=== PATIENT | male | born 1980 | race Caucasian/White ===

== ENCOUNTER 2017-11-30 10:45 | Inpatient (IN) | payer OTHER ==
[~2017-11-30] VITALS: Ht 160 cm; Wt 78.9 kg
--- NOTE | ~2017-11-30 | PROC ---
[facility] [address] [place] [address] PROCEDURE REPORT Name: ATIF MERRITT Room: [address]#: [id number] Admission: 11/30/17 Attend Phys: Patrick Knapp, Discharge: 12/05/17 Date of : 78 Report #: [id number] THIS REPORT FOR: //name// For GI report, please see the Provation report in Per[employer] content. By: [id number] Records Staff NATIVIDAD /JANAE
[2017-11-30 11:15] VITALS: BP 127/95
[2017-11-30] MEDS ORDERED: CLARITIN10 MG PO (12:42)
[2017-11-30] MEDS ORDERED: PROBIOTIC1 EAC1 PO (12:42)
[2017-11-30] MEDS ORDERED: ZOFRAN ODT4 MG PO (12:43)
[2017-11-30] MEDS ORDERED: NORCO 5-325 TA1 EACH PO (12:43)
[2017-11-30 13:30] LABS: ABSOLUTE LYMPHOCYTES 1.3 thou/uL (0.8-5.3); ABSOLUTE MONOCYTES 1.4 thou/uL (0.0-1.2); ABSOLUTE NEUTROPHILS 9.8 thou/uL (1.6-8.1); BASOPHILS 0.3 %; EOSINOPHILS 0.2 %; HEMATOCRIT 48.5 % (42.0-52.0); HEMOGLOBIN 16.5 gm/dL (14.0-18.0); LYMPHOCYTES 10.6 %; MCH 30.5 pg (26.0-34.0); MCV 89.8 fL (80.0-100.0); MONOCYTES 11.2 %; NUCLEATED RBCS 0 /100WBC; PLATELET COUNT* 295 thou/uL (150-400); POLYS 77.7 %; RDW-CV 12.8 % (10.5-14.5); WBC 12.7 thou/uL (4.0-11.0)
[2017-11-30 13:47] LABS: CALCIUM 8.2 mg/dL (8.5-10.1); CREATININE 0.9 mg/dL (0.6-1.3); POTASSIUM 3.7 mmol/L (3.5-5.1)
[2017-11-30 15:29] VITALS: BP 121/83
[2017-11-30 18:12] LABS: URINE BLOOD NEGATIVE (Negative); URINE CLARITY CLEAR; URINE COLOR YELLOW; URINE GLUCOSE-RANDOM NEGATIVE (Negative); URINE LEUKOCYTES-REFLEX NEGATIVE (Negative); URINE NITRITE-REFLEX NEGATIVE (Negative); URINE PROTEIN 1+ (Negative); URINE SPECIFIC GRAVITY >= 1.030 (1.005-1.030); URINE UROBILINOGEN 0.2 E.U./dl (0.2-1.0)
[2017-11-30 18:22] LABS: URINE BILIRUBIN 2+ (Negative); URINE KETONES 3+ (Negative)
[2017-11-30 18:32] LABS: ACETEST (KETONE CONFIRMATORY) Moderate (Negative); BACTERIA-REFLEX 1-9 Few /HPF (None Seen); ICTOTEST (BILI CONFIRMATORY) Negative (Negative); SQUAMOUS 0-3 Few /LPF (0-3); URINE RBC 0-2 Rare /HPF (0-2); URINE WBC-REFLEX 0-5 Rare /HPF (0-5)
[2017-11-30 18:33] LABS: CRYSTALS None Seen /LPF (None Seen); HYALINE CASTS >10 Many /LPF (None Seen); MUCUS >6 Heavy strn/LPF (None Seen)
[2017-11-30 20:00] VITALS: BP 141/91
[2017-12-01] VITALS: BP 123/80
[2017-12-01 04:00] VITALS: BP 128/84
[2017-12-01 04:57] LABS: HEMATOCRIT 44.1 % (42.0-52.0); HEMOGLOBIN 14.9 gm/dL (14.0-18.0); MCH 30.8 pg (26.0-34.0); MCHC 33.9 g/dL (28.0-37.0); MCV 90.9 fL (80.0-100.0); RBC 4.85 mil/uL (4.50-6.00); RDW-CV 13.1 % (10.5-14.5); WBC 8.7 thou/uL (4.0-11.0)
[2017-12-01 05:12] LABS: ALBUMIN 1.6 g/dL (3.4-5.0); CALCIUM 7.8 mg/dL (8.5-10.1); CREATININE 0.6 mg/dL (0.6-1.3); MAGNESIUM 1.9 mg/dL (1.8-2.4); TOTAL BILIRUBIN 0.5 mg/dL (<0.1-1.0); TOTAL PROTEIN 5.6 g/dL (6.4-8.2)
[2017-12-01 05:21] LABS: POTASSIUM 5.1 mmol/L (3.5-5.1)
[2017-12-01 08:45] VITALS: BP 130/90
[2017-12-01 12:15] VITALS: BP 125/84
[2017-12-01 16:03] VITALS: BP 135/85
[2017-12-01 20:00] VITALS: BP 145/96
[2017-12-02] VITALS (8 sets, daily range): BP systolic 114–151; BP diastolic 76–102
[2017-12-02 04:56] LABS: ABSOLUTE LYMPHOCYTES 0.8 thou/uL (0.8-5.3); ABSOLUTE MONOCYTES 1.2 thou/uL (0.0-1.2); ABSOLUTE NEUTROPHILS 4.8 thou/uL (1.6-8.1); BASOPHILS 0.1 %; EOSINOPHILS 0.2 %; HEMATOCRIT 39.4 % (42.0-52.0); HEMOGLOBIN 13.8 gm/dL (14.0-18.0); MCH 30.6 pg (26.0-34.0); MCV 87.6 fL (80.0-100.0); MONOCYTES 17.8 %; MPV 7.7 fl. (7.2-11.1); NUCLEATED RBCS 0 /100WBC; PLATELET COUNT* 268 thou/uL (150-400); POLYS 69.9 %; RDW-CV 13.2 % (10.5-14.5); WBC 6.8 thou/uL (4.0-11.0)
[2017-12-02 05:22] LABS: ALBUMIN 1.7 g/dL (3.4-5.0); CALCIUM 7.7 mg/dL (8.5-10.1); CREATININE 0.6 mg/dL (0.6-1.3); TOTAL BILIRUBIN 0.5 mg/dL (<0.1-1.0); TOTAL PROTEIN 5.7 g/dL (6.4-8.2)
[2017-12-02 05:39] LABS: POTASSIUM 2.9 mmol/L (3.5-5.1)
[2017-12-02 06:51] LABS: ESR (SEDRATE) 60 mm/hr (0-15)
[2017-12-03] VITALS: BP 118/74
[2017-12-03 04:00] VITALS: BP 105/68
[2017-12-03 07:45] LABS: HEMATOCRIT 38.8 % (42.0-52.0); HEMOGLOBIN 13.3 gm/dL (14.0-18.0); MCH 30.4 pg (26.0-34.0); MCHC 34.3 g/dL (28.0-37.0); MCV 88.5 fL (80.0-100.0); MPV 7.5 fl. (7.2-11.1); RBC 4.39 mil/uL (4.50-6.00); RDW-CV 13.2 % (10.5-14.5); WBC 3.5 thou/uL (4.0-11.0)
[2017-12-03 07:58] LABS: ALBUMIN 1.7 g/dL (3.4-5.0); CALCIUM 7.6 mg/dL (8.5-10.1); CREATININE 0.6 mg/dL (0.6-1.3); MAGNESIUM 2.1 mg/dL (1.8-2.4); POTASSIUM 3.8 mmol/L (3.5-5.1); TOTAL BILIRUBIN 0.3 mg/dL (<0.1-1.0); TOTAL PROTEIN 5.8 g/dL (6.4-8.2)
[2017-12-03 08:30] VITALS: BP 133/92
[2017-12-03 11:36] VITALS: BP 112/65
[2017-12-03 16:04] VITALS: BP 118/85
[2017-12-03 20:00] VITALS: BP 113/74
[2017-12-04] VITALS: BP 128/79
[2017-12-04 04:00] VITALS: BP 126/77
[2017-12-04 07:30] VITALS: BP 123/84
[2017-12-04 09:09] LABS: HEPATITIS B SURFACE AG Negative (Negative)
[2017-12-04 11:57] VITALS: BP 132/87
[2017-12-04 15:59] VITALS: BP 149/89
[2017-12-04 20:00] VITALS: BP 128/87
[2017-12-05] VITALS: BP 128/77
[2017-12-05 04:00] VITALS: BP 125/78
[2017-12-05 08:11] VITALS: BP 132/92
[2017-12-05 12:39] VITALS: BP 128/81
[2017-12-05] MEDS ORDERED: LIALDA1.2 GM PO (12:40)
[2017-12-05] MEDS ORDERED: HYDROCODON-ACE1 EA11 PO (12:40)
[2017-12-05] MEDS ORDERED: OSTERA TABLET1 EAC1 PO (12:40)
[2017-12-05] MEDS ORDERED: BENTYL 10 MG CA10 M1 PO (12:40)
[2017-12-05] MEDS ORDERED: PREDNISONE 10 M10 M1 PO (12:40)
[2017-12-05] MEDS ORDERED: PROTONIX40 M1 PO (12:49)
[2017-12-05 13:03] VITALS: BP 128/81
--- NOTE | 2017-12-06 11:09 | PATH ---
[address] [address] PATHOLOGY RPT PROCEDURE Name: ATIF ANDREWS Room: [address] IN .R.#: [id number] Admission: 11/30/17 Date of : 78 Discharge: 12/05/17 Report #: [id number] Path Case #: [id number] [facility] Accession Number: [id number] . 01 Material submitted: . PART A: SMALL BOWEL BIOPSIES PART B: BIOPSY TERMINAL ILEUM PART C: BIOPSY CECUM PART D: BIOPSY ASCENDING COLON PART E: BIOPSY TRANSVERSE COLON PART F: BIOPSY DESCENDING COLON PART G: BIOPSY SIGMOID PART H: BIOPSY RECTUM . 01 Clinical history: . A: Biopsy for chronic diarrhea . 02 Diagnosis: A. Small bowel biopsies: - Focal fresh hemorrhage in otherwise normal duodenal/small intestinal mucosa. . B. Biopsy terminal ileum: - Focal fresh hemorrhage in otherwise normal small intestinal mucosa. . C through H: Cecum, ascending colon, transverse colon, descending colon, sigmoid, and rectum biopsies: - Severe chronic active colitis typical of inflammatory bowel disease, negative for granulomas, viral inclusions and dysplasia. See comment. . (ASHLEY:kristan; 12/05/2017) QMS/12/05/2017 . 02 Comment: All of the colonic biopsies (C through H) show extensive active colitis with easily identified crypt abscesses and cryptitis as well as chronic inflammation evidenced by crypt distortion and basal lymphoplasmacytosis, the latter noted to be most prominent in the transverse and descending colon biopsies (E and F). There is no pseudomembrane present and no fibrosis/ischemic features apparent. The biopsies are typical of inflammatory bowel disease and favor ulcerative colitis. (ASHLEY:kristan; 12/05/2017) . 02 Electronically signed: . Temo Crockett MD, Pathologist NPI- [id number] . 01 Gross description: [place] [address] PATHOLOGY RPT PROCEDURE Name: ATIF ANDREWS J W Room: [address] IN [facility]#: [id number] Admission: 11/30/17 Date of : 78 Discharge: 12/05/17 Report #: [id number] Path Case #: [id number] A. The specimen is received in formalin, labeled "Atif Andrews, small bowel biopsies" and consists of multiple fragments of soft lyons tissue measuring 0.9 x 0.6 x 0.2 cm in aggregate. They are entirely submitted in A1. . B. The specimen is received in formalin, labeled "Atif Andrews, biopsy terminal ileum" and consists of 2 fragments of soft lyons tissue measuring 0.3 x 0.2 x 0.2 cm and 0.2 x 0.2 x 0.2 cm. They are entirely submitted in B1. . C. The specimen is received in formalin, labeled "Atif Andrews, cecum biopsy" and consists of 2 fragments of soft lyons tissue measuring 0.4 x 0.3 x 0.2 cm and 0.4 x 0.2 x 0.1 cm. They are entirely submitted in C1. . D. The specimen is received in formalin, labeled "Atif Andrews, biopsy ascending colon" and consists of 2 fragments of soft lyons tissue measuring 0.4 x 0.3 x 0.1 cm and 0.3 x 0.2 x 0.1 cm. They are entirely submitted in D1. . E. The specimen is received in formalin, labeled "Atif Andrews, biopsy transverse colon" and consists of 3 fragments of soft lyons tissue measuring between 0.3 x 0.2 x 0.1 cm and 0.2 x 0.2 x 0.1 cm. They are entirely submitted in E1. . F. The specimen is received in formalin, labeled "Atif Andrews, biopsy descending colon" and consists of 4 fragments soft lyons tissue measuring between 0.3 x 0.2 x 0.1 cm and 0.2 x 0.2 x 0.1 cm. They are entirely submitted in F1. . G. The specimen is received in formalin, labeled "Atif Andrews, biopsy sigmoid colon" and consists of 3 fragments of soft lyons tissue measuring between 0.5 x 0.3 x 0.1 cm and 0.1 x 0.1 x 0.1 cm. They are entirely submitted in G1. . H. The specimen is received in formalin, labeled "Atif Andrews, biopsy rectum" and consists of 2 fragments of soft lyons tissue measuring 0.5 x 0.3 x 0.2 cm and 0.3 x 0.2 x 0.1 cm. They are entirely submitted in H1. (SDY; 12/03/2017) SYU/SYU . 02 Pathologist provided ICD-10: K52.9, R11.2, R19.7 . 02 CPT . 306135, 137565, [id number], [id number], 562173, 225219, [id number], [id number] Performed at: 01 [facility] [place] [address] [facility] [address], [place], [place] [id number] MD Sergey Seth MD Phone: [phone] [address] [address] PATHOLOGY RPT PROCEDURE Name: ATIF ANDREWS Room: [address] IN [facility].#: [id number] Admission: 11/30/17 Date of : 78 Discharge: 12/05/17 Report #: [id number] Path Case #: [id number] [facility]formed at: [facility] [address] [place] [id number] MD Temo Crockett MD Phone: [phone]
== END 2017-12-05 13:50 | disposition home or self-care (01) | DRG 385 ==
LOC: M.2W 11:09
PROVIDERS: Internal Medicine Gastroenterology; ADMIT Family Medicine
PROC: 0DBH8ZX Excision of Cecum, Via Natural or Artificial Opening Endoscopic, Diagnostic (ICD-10-PCS; principal; 2017-12-02)
PROC: 0DB88ZX Excision of Small Intestine, Via Natural or Artificial Opening Endoscopic, Diagnostic (ICD-10-PCS; principal; 2017-12-02)
PROC: 0DBB8ZX Excision of Ileum, Via Natural or Artificial Opening Endoscopic, Diagnostic (ICD-10-PCS; principal; 2017-12-02)
PROC: 0DBK8ZX Excision of Ascending Colon, Via Natural or Artificial Opening Endoscopic, Diagnostic (ICD-10-PCS; principal; 2017-12-02)
PROC: 0DBL8ZX Excision of Transverse Colon, Via Natural or Artificial Opening Endoscopic, Diagnostic (ICD-10-PCS; principal; 2017-12-02)
PROC: 0DBP8ZX Excision of Rectum, Via Natural or Artificial Opening Endoscopic, Diagnostic (ICD-10-PCS; principal; 2017-12-02)
PROC: 0DBN8ZX Excision of Sigmoid Colon, Via Natural or Artificial Opening Endoscopic, Diagnostic (ICD-10-PCS; principal; 2017-12-02)
PROC: 0DBM8ZX Excision of Descending Colon, Via Natural or Artificial Opening Endoscopic, Diagnostic (ICD-10-PCS; principal; 2017-12-02)
DX: K51.00 Ulcerative (chronic) pancolitis without complications (principal); E43 Unspecified severe protein-calorie malnutrition; N17.0 Acute kidney failure with tubular necrosis; E86.0 Dehydration; D72.829 Elevated white blood cell count, unspecified; K21.0 Gastro-esophageal reflux disease with esophagitis; K44.9 Diaphragmatic hernia without obstruction or gangrene; E87.6 Hypokalemia; D64.9 Anemia, unspecified; K52.9 Noninfective gastroenteritis and colitis, unspecified; E88.09 Other disorders of plasma-protein metabolism, not elsewhere classified; E55.9 Vitamin D deficiency, unspecified; R93.3 Abnormal findings on diagnostic imaging of other parts of digestive tract; Z86.718 Personal history of other venous thrombosis and embolism; Z79.899 Other long term (current) drug therapy; Z88.8 Allergy status to other drugs, medicaments and biological substances; Z98.52 Vasectomy status; Z86.711 Personal history of pulmonary embolism; Z68.30 Body mass index [BMI] 30.0-30.9, adult

== ENCOUNTER → 2017-12-28 | Outpatient (CLI) | payer OTHER ==
[~2017-12-28] MED LIST: BENTYL 10 MG CA10 M1 PO; CLARITIN10 MG PO; HYDROCODON-ACE1 EA11 PO; LIALDA1.2 GM PO; NORCO 5-325 TA1 EACH PO; OSTERA TABLET1 EAC1 PO; PREDNISONE 10 M10 M1 PO; PROBIOTIC1 EAC1 PO; PROTONIX40 M1 PO; ZOFRAN ODT4 MG PO
== END ==
LOC: M.ULTRA 12:30
DX: I82.431 Acute embolism and thrombosis of right popliteal vein (principal); I82.441 Acute embolism and thrombosis of right tibial vein